=== PATIENT | male | born 1970 | race Caucasian/White ===

== ENCOUNTER → 2017-07-06 | Outpatient (CLI) | payer OTHER ==
--- NOTE | 2017-07-06 13:36 | DIAGNOSTIC IMAGING REPORT ---
CERVICAL SPINE MRI HISTORY: [facility] TYPE I COMPRESSION OF BRAIN TECHNIQUE: Multiplanar multisequence MRI of the cervical spine was performed without the use of contrast. The study was performed in flexion, extension, and neutral views. CSF flow study was also obtained. COMPARISON STUDY: None. FINDINGS: Minimal tonsillar ectopia measuring up to 2 mm. No mass effect along the brainstem. Straightening of the cervical spine. The cervical spinal cord demonstrates a normal signal intensity. There is moderate to space narrowing at C5-C6 and C6-C7. Prevertebral soft tissues and the C1-C2 interval are intact. No fracture or subluxation within the cervical spine. The visualized brain parenchyma is unremarkable. C2-C3: No significant central canal or neural foraminal narrowing. C3-C4: No significant central canal narrowing. Moderate right neural foraminal narrowing. No left-sided neural foraminal narrowing. C4-C5: No significant central canal or neural foraminal narrowing. C5-C6: Broad-based posterior disc osteophyte complex. This abuts and slightly deforms the anterior cord on the extension views only. There is also mild right and moderate left neural foraminal narrowing. C6-C7: Broad-based posterior disc osteophyte complex which abuts and slightly deforms the anterior cord resulting in mild to moderate central canal narrowing. This is most pronounced on the extension views and improves on the flexion views. There is also severe right and moderate left neural foraminal narrowing. C7-T1: No significant central canal or neural foraminal narrowing. CSF flow: Normal CSF flow at the cervicomedullary junction. Diminished CSF flow at the C6-C7 level due to the central canal narrowing which is most pronounced on the extension views. IMPRESSION: 1. Degenerative changes at C5-C6 and C6-C7 resulting in central canal neural and foraminal narrowing as described above which is most pronounced on the extension views. 2. There is associated diminished CSF flow at the C6-C7 level due to the central canal narrowing which is most pronounced on the extension views. 3. Minimal cerebellar tonsillar ectopia. Electronically signed by: Damien Mirza M.D. 07/06/2017 1:34 PM Dictated Date/Time: 07/06/2017 1:24 PM
== END | disposition home or self-care (01) ==
LOC: C.MRIBC 11:33
PROVIDERS: ATTEND Neurological Surgery
DX: G93.5 Compression of brain (principal); M89.8X8 Other specified disorders of bone, other site